=== PATIENT | male | born 1950 | race Caucasian/White ===

== ENCOUNTER 2016-07-23 14:45 | Inpatient (IN) | payer MEDICARE ==
[2016-07-23 16:05] VITALS: BP 152/92
[2016-07-23] MEDS ORDERED: Maalox 30 mL Cup PO PRN (16:13)
[2016-07-23] MEDS ORDERED: Potassium Chloride 20 mEq ER Tab PO ONE (22:00)
[2016-07-24 07:52] LABS: ANION GAP 9.2 (7.0-16.0); BUN - UREA NITROGEN 14 mg/dL (7-25); BUN/CREATININE RATIO 23.3; CALCIUM SERUM 8.6 mg/dL (8.6-10.3); CARBON DIOXIDE 29.3 mEq/L (21.0-31.0); CHLORIDE 104 mEq/L (98-107); CREATININE - SERUM 0.6 mg/dL (0.7-1.3); GLUCOSE 97 mg/dL (70-105); POTASSIUM SERUM 3.5 mEq/L (3.5-5.1); SODIUM SERUM 139 mEq/L (136-145)
[2016-07-24] MEDS: Multivitamin Tab PO SCH (08:23)
--- NOTE | 2016-07-24 09:40 | Diagnostic Imaging Report ---
CHEST X-RAY: AP view INDICATION: +PPD, rule out tuberculosis COMPARISON: None FINDINGS: Skin folds are seen along the bilateral hemithoraces. No evidence of a pneumothorax. Mild chronic changes are seen with no focal consolidation or pleural effusions. Tortuous aorta is noted with atherosclerosis. Heart size is normal. Osseous structures are intact. IMPRESSION: Mild chronic lung changes with no focal consolidation identified. No radiographic evidence of active tuberculosis. Tortuous aorta with atherosclerotic vascular disease.
[2016-07-24] MEDS: INSULIN ASPART SLIDING SCALE 100 UNITS/ML UNIT SUBQ SCH ×2 (16:52→21:11)
[2016-07-24] MEDS: Magnesium Chloride EC 64mg Tab PO SCH (16:56)
--- NOTE | 2016-07-25 02:38 | Psychosocial Evaluation ---
CHIEF COMPLAINT: "I am suicidal and I need a sharp knife." HISTORY OF PRESENT ILLNESS: The patient is a 66-year-old male who has history of bipolar disorder. The patient was transferred to the hospital from [facility] because of suicidal ideations. The patient said that he has been feeling depressed and he wants to kill himself by cutting his wrists or his jugular vein with a sharp knife. The patient said that he tried to cut his arm but he did not have a sharp knife and it did not work. He also has history of multiple suicidal attempts including cutting his left jugular vein 3 times and also overdosed on pills. He also said that he has been feeling that there is no reason for him to live and he should . The patient said that he has not been eating for several days and he has not been able to sleep. He also has been having lack of energy and lack of motivations and he feels ashamed to see others. PAST PSYCHIATRIC HISTORY: The patient has history of multiple psychiatric hospitalizations for treatment of bipolar disorder. PAST MEDICAL HISTORY: The patient has history of [id number] diabetes mellitus as well as bronchial asthma and hypertension. CHEMICAL DEPENDENCY HISTORY: The patient smokes 1 pack of cigarette per day. He denies any alcohol or any street drug use. SOCIAL HISTORY: The patient is since 1998. He has 3 grown-up children that he has no contact with them. The patient is homeless. He is unemployed and on social security disability. He denies any legal issues. He denies any history of sexual or physical abuse. ALLERGIES: ARTANE. MENTAL STATUS EXAM: The patient appears his stated age. Anxious. Sad affect. In a depressed mood. Thought processes are goal directed. The patient denied auditory or visual hallucinations or delusions. The patient admits to suicidal ideations with plan as mentioned above but denies any homicidal ideations. The patient is alert and oriented to time, place, person and situation. Intact immediate memory and he remembers events that happened prior to his admission. Intact recent memory and he remembers the events that happened 2 weeks ago. Intact remote memory and he remembered his date. Fair insight and he wants to get help and cooperative with his treatment. Poor judgment and he wants to cut himself with a sharp knife. He seems to be of average intelligence based on his verbal ability. Fair attention and concentration and he was able to spell "world" forward and backwards. ASSESSMENT: Primary diagnosis; bipolar disorder, depressed episode. TREATMENT PLAN: We will monitor the patient's behavior and condition closely. We will start the patient on Lexapro and Abilify and we will also monitor the dose. Also, we will start individual as well as milieu psychotherapy. ESTIMATED LENGTH OF STAY: 7-10 days. PATIENTS' STRENGTHS AND WEAKNESSES: The patient is cooperative with his treatment and compliant with taking medications and wants to get better. Weaknesses is his ineffective coping and questionable if he was compliant with taking his medications. AFTER DISCHARGE PLANS: The patient will be followed up as an outpatient. CRITERIA FOR DISCHARGE: The patient will not be psychotic or suicidal and to stabilize psychotropic medications and we will establish outpatient treatment plans. JOB# [id number]
[2016-07-25] MEDS: Aspirin 81mg Chewable Tab PO SCH (08:25)
[2016-07-25] MEDS: Multivitamin Tab PO SCH (08:25)
[2016-07-25] MEDS: INSULIN ASPART SLIDING SCALE 100 UNITS/ML UNIT SUBQ SCH ×4 (08:28→21:05)
[2016-07-25] MEDS: Magnesium Chloride EC 64mg Tab PO SCH ×2 (08:37→16:41)
--- NOTE | 2016-07-26 00:33 | Progress Notes ---
Covering for Dr. Isaacs. Case was discussed with staff of the patient, reviewed records. This is a 66-year-old male who was admitted on a hold for danger to self only 07/23/2016. He has a history of bipolar disorder, transferred from [facility] because of suicidal ideation. The patient said that he has been feeling depressed. He wants to kill himself by cutting his wrist or his jugular vein with a sharp knife. The patient said that he tried to cut his arm, but he did not have a sharp knife and it did not work. He is with a history of multiple suicide attempts, including cutting his left jugular vein 3 times and also overdosed on pills and also said that he has been feeling that there is no reason for him to live and he should . He said that he has not been eating for several days and has not been able to sleep. He has also been having lack of energy, lack of motivation. Has multiple prior psychiatric hospitalizations for bipolar disorder. Dr. Isaacs initiated medication on the patient, which is Lexapro 10 mg a day and Abilify 5 mg daily that was started yesterday. The patient continues to be unpredictable and impulsive. I will be increasing his Abilify dose to 10 mg a day and extend the hold because of his multiple suicide attempts and seriousness of his attempt. The patient is unpredictable and impulsive. I will be extending the hold because of the seriousness of his depression and multiple prior suicide attempts and so far, I will be increasing Abilify to 10 mg a day and so far, no side effects with the medication, no sedation, no nausea and we will continue to work with the patient in group therapy, milieu therapy, adjust the medication as needed. JOB# [id number]
[2016-07-26] MEDS: INSULIN ASPART SLIDING SCALE 100 UNITS/ML UNIT SUBQ SCH ×4 (06:30→20:45)
[2016-07-26] MEDS: Aspirin 81mg Chewable Tab PO SCH (08:52)
[2016-07-26] MEDS: Magnesium Chloride EC 64mg Tab PO SCH ×2 (08:52→16:51)
[2016-07-26] MEDS: Multivitamin Tab PO SCH (08:52)
--- NOTE | 2016-07-26 20:51 | Progress Notes ---
Case was discussed with staff of the patient, reviewed records. The patient continues to be depressed. Continues to be easily agitated. Continues to have poor insight. Continues to have thoughts of wanting to harm himself with multiple prior suicide attempts. Continues to be unpredictable, impulsive, and needing redirection. He is sleeping better and eating better. He is compliant with the medication with no side effects, no sedation, no nausea, and no extrapyramidal symptoms. He is on Abilify, I increased yesterday to 10 mg a day with no side effects, no sedation, no nausea, and no extrapyramidal symptoms. He was agitated yesterday. We will continue with the patient in group therapy, milieu therapy, and adjust medication as needed. JOB# [id number]
[2016-07-27] MEDS: INSULIN ASPART SLIDING SCALE 100 UNITS/ML UNIT SUBQ SCH ×4 (06:36→21:00)
[2016-07-27] MEDS: Aspirin 81mg Chewable Tab PO SCH (08:55)
[2016-07-27] MEDS: Magnesium Chloride EC 64mg Tab PO SCH ×2 (08:56→17:38)
[2016-07-27] MEDS: Multivitamin Tab PO SCH (08:56)
--- NOTE | 2016-07-27 16:06 | History & Physical ---
PATIENT IDENTIFICATION: A 66-year-old male. CHIEF COMPLAINT: "I'm depressed." HISTORY OF PRESENT ILLNESS: This is a 68-year-old homeless male presented to [facility] with chief complaint of feeling depressed. The patient was placed on hold and subsequently transferred here to [facility] for further care. PAST MEDICAL HISTORY: Remarkable for: 1. Diabetes. 2. Hypertension. 3. Chronic obstructive pulmonary disease. 4. DJD 5. Hyperlipidemia. MEDICATIONS: He was not taking any medicines, but on the chart, he was taking lisinopril and metformin. ALLERGIES: THE PATIENT IS ALLERGIC TO ARTANE. SOCIAL HISTORY: He is homeless. He has a history of smoking cigarettes. No history of any alcohol abuse. The patient denies any street drug use as per the patient's account. FAMILY MEDICAL HISTORY: Remarkable for diabetes, hypertension, and cancer. REVIEW OF SYSTEMS: The patient currently denies any headache, blurred vision, double vision, dysphagia, odynophagia, runny nose, stuffy nose, fever, chills, chest pain, shortness of breath, palpitations, dizziness, nausea, vomiting, diarrhea, dysuria, hematuria, hematochezia, or melena. No history of any seizure or syncopal episode. PHYSICAL EXAMINATION: GENERAL: The patient is alert, awake, oriented, lying in the bed without any acute distress. VITAL SIGNS: Temperature 98.6, pulse is 74, respiratory rate 18, and blood pressure 130/70. SKIN: Warm to touch. HEENT: Normocephalic and atraumatic. Extraocular muscles are intact. Tongue was pink and coated. Poor dentition noted. NECK: Supple. No JVD. No hepatojugular reflex. No lymphadenopathy, thyromegaly, or carotid bruit. HEART: Both heart sounds are regular. No S3, no S4, and no murmur. CHEST/LUNG: Equal in expansion, expiratory wheezing. ABDOMEN: Soft. No guarding, no rigidity. Liver and spleen palpable. No palpable mass. EXTREMITIES: No edema, no cyanosis, no clubbing ___ +2, no calf tenderness noted. NEUROLOGIC: Alert, awake, and oriented, lying in the bed without any acute distress. 2-12 cranial nerves are intact. PHYSICAL EXAMINATION VITAL SIGNS: Temperature 97.3, pulse 87, respiratory rate is 20, and blood pressure 150/86. SKIN: Warm to touch. HEENT: Normocephalic and atraumatic. Extraocular muscles are intact. Tongue was pink and coated. No oral lesion. No exudate. Absent upper and lower dentition noted. NECK: Supple. No JVD. No hepatojugular reflex. No lymphadenopathy, thyromegaly, or carotid bruit. HEART: Both heart sounds are regular. No S3, no S4. CHEST/LUNGS: Equal in expansion with expiratory wheezing. ABDOMEN: Soft. No guarding, no rigidity. Liver and spleen palpable. No palpable mass. EXTREMITIES: No edema, no cyanosis, and no calf tenderness noted. NEUROLOGY: Alert, awake, and oriented to time, place, person. 2-12 cranial nerves are intact. Power in upper and lower extremities 5+. Sensation to touch intact. Babinski in both toes are going down. No cerebral sign. AVAILABLE DIAGNOSTIC DATA: Performed has been reviewed. CLINICAL IMPRESSION: 1. Chronic obstructive pulmonary disease. 2. Diabetes. 3. Hypertension. 4. Hyperlipidemia. 5. Electrolyte imbalance. 6. Degenerative joint disease. 7. Psychotic disorder exacerbation. PLAN: 1. The patient has been admitted at this time to psychiatric floor. Psychiatric evaluation and management deferred to psychiatrist. 2. Correct the electrolytes. 3. More Glucoscan. 4. Metformin. 5. Lisinopril. 6. Lipid panel. 7. Fall precaution. 8. Aspirin as a CVA prophylaxis. 9. General nursing care. 10. Follow lab. 11. We will continue to follow this patient during the stay at the [facility]. JOB# [id number]
--- NOTE | 2016-07-28 00:47 | Progress Notes ---
Case discussed with staff of the patient, reviewed records. The patient continues to be depressed. The patient is with multiple prior serious suicide attempts, cutting his jugular vein, continues to have poor insight, continues to be unpredictable, impulsive, continues to need redirection ____to a supervision. He is compliant with the medication with no side effects, no sedation, no nausea, no extrapyramidal symptoms. I did increase his Abilify yesterday to 10 mg. I will be increasing his Lexapro to 50 mg a day, ____he will get 10 mg therapeutic dose and so far, no side effects, no sedation, no nausea, no extrapyramidal symptoms. We will continue to work with the patient in group therapy, milieu therapy, adjust the medications as needed. JOB# [id number]
[2016-07-28] MEDS: INSULIN ASPART SLIDING SCALE 100 UNITS/ML UNIT SUBQ SCH ×4 (06:33→21:07)
[2016-07-28] MEDS: Aspirin 81mg Chewable Tab PO SCH (09:09)
[2016-07-28] MEDS: Multivitamin Tab PO SCH (09:12)
[2016-07-28] MEDS: Magnesium Chloride EC 64mg Tab PO SCH ×2 (09:13→17:11)
--- NOTE | 2016-07-28 15:36 | Internal Medicine Prog Note ---
Internal Medicine Subjective - Subjective Service Date: 07/28/16 Patient seen and examined:: with staff Patient is:: awake Per staff patient is:: no adverse event Internal Medicine Objective - Results Result Diagrams: 07/24/16 07:04 Recent Labs: Laboratory Last Values Sodium 139 mEq/L (136-145) 07/24/16 07:04 Potassium 3.5 mEq/L (3.5-5.1) 07/24/16 07:04 Chloride 104 mEq/L (98-107) 07/24/16 07:04 Carbon Dioxide 29.3 mEq/L (21.0-31.0) 07/24/16 07:04 Anion Gap 9.2 (7.0-16.0) 07/24/16 07:04 BUN 14 mg/dL (7-25) 07/24/16 07:04 Creatinine 0.6 mg/dL (0.7-1.3) L 07/24/16 07:04 Est GFR ( Amer) > 60.0 ml/min 07/24/16 07:04 Est GFR (Non-Af Amer) > 60.0 ml/min 07/24/16 07:04 BUN/Creatinine Ratio 23.3 07/24/16 07:04 Glucose 97 mg/dL (70-105) 07/24/16 07:04 POC Glucose 113 MG/DL (70 - 105) H 07/28/16 06:30 Calcium 8.6 mg/dL (8.6-10.3) 07/24/16 07:04 Magnesium 1.6 mg/dL (1.9-2.7) L 07/24/16 06:58 - Physical Exam Vitals and I&O: Vital Signs Temp 97 F 07/28/16 06:26 Pulse 84 07/28/16 09:11 Resp 20 07/28/16 06:26 BP 149/90 07/28/16 09:11 Pulse Ox 100 07/28/16 06:26 Intake & Output 07/27/16 07/28/16 07/28/16 18:59 06:59 18:59 Intake Total 1000 240 Balance 1000 240 Intake: Oral 1000 240 Other: # Voids 3 3 # Bowel Movements 1 0 Active Medications: Current Medications Acetaminophen (Tylenol) 650 mg PO Q4HR PRN PRN Reason: Pain or Fever >101 Stop: 09/21/16 16:12 Al Hydrox/Mg Hydrox/Simethicone (Maalox) 30 ml PO Q4HR PRN PRN Reason: GI DISTRESS Stop: 09/21/16 16:12 Aripiprazole (Abilify) 10 mg PO DAILY COLT PRN Reason: Protocol Stop: 09/23/16 13:03 Last Admin: 07/28/16 09:09 Dose: 10 mg Aspirin (Aspirin Chewable) 81 mg PO DAILY [facility] Stop: 09/23/16 08:59 Last Admin: 07/28/16 09:09 Dose: 81 mg Escitalopram Oxalate (Lexapro) 15 mg PO DAILY COLT PRN Reason: Protocol Stop: 09/25/16 11:49 Last Admin: 07/28/16 09:09 Dose: 15 mg Insulin Aspart (Novolog Insulin Sliding Scale) 1 units SUBQ ACHS COLT PRN Reason: Protocol Stop: 09/22/16 16:29 Last Admin: 07/28/16 06:33 Dose: Not Given Lisinopril (Zestril) 20 mg PO DAILY [facility] Stop: 09/22/16 08:59 Last Admin: 07/28/16 09:11 Dose: 20 mg Lorazepam (Ativan) 0.5 mg PO Q4HR PRN; Protocol PRN Reason: Anxiety Stop: 08/22/16 16:12 Last Admin: 07/27/16 08:55 Dose: 0.5 mg Magnesium Chloride (Slow-Mag) 1 ect PO BID [facility] Stop: 09/22/16 16:59 Last Admin: 07/28/16 09:13 Dose: 1 ect Metformin HCl (Glucophage) 500 mg PO BID [facility] Stop: 09/21/16 16:59 Last Admin: 07/28/16 09:12 Dose: 500 mg Multivitamins/Vitamin C (Theragran) 1 tab PO DAILY [facility] Stop: 09/22/16 08:59 Last Admin: 07/28/16 09:12 Dose: 1 tab Zolpidem Tartrate (Ambien) 5 mg PO HS PRN PRN Reason: Insomnia Stop: 09/21/16 16:12 General: alert HEENT: NC/AT, PERRLA Neck: Supple Lungs: CTAB Cardiovascular: RRR, Normal S1, Normal S2, without murmur Abdomen: soft non-tender Neurological: no change Internal Medicine Assmt/Plan - Assessment Assessment: copd dm htn hyperlipidemia electrolyte imbalance djd psychotic disorder - Plan Plan: low fat diet continue current plan of care cpm
[2016-07-29] MEDS: INSULIN ASPART SLIDING SCALE 100 UNITS/ML UNIT SUBQ SCH ×4 (06:47→20:08)
[2016-07-29] MEDS: Magnesium Chloride EC 64mg Tab PO SCH ×2 (09:43→17:16)
[2016-07-29] MEDS: Multivitamin Tab PO SCH (09:45)
[2016-07-29] MEDS: Aspirin 81mg Chewable Tab PO SCH (09:45)
--- NOTE | 2016-07-29 16:15 | Internal Medicine Prog Note ---
Internal Medicine Subjective - Subjective Service Date: 07/29/16 Patient seen and examined:: with staff Patient is:: awake Per staff patient is:: no adverse event Internal Medicine Objective - Results Result Diagrams: 07/24/16 07:04 Recent Labs: Laboratory Last Values Sodium 139 mEq/L (136-145) 07/24/16 07:04 Potassium 3.5 mEq/L (3.5-5.1) 07/24/16 07:04 Chloride 104 mEq/L (98-107) 07/24/16 07:04 Carbon Dioxide 29.3 mEq/L (21.0-31.0) 07/24/16 07:04 Anion Gap 9.2 (7.0-16.0) 07/24/16 07:04 BUN 14 mg/dL (7-25) 07/24/16 07:04 Creatinine 0.6 mg/dL (0.7-1.3) L 07/24/16 07:04 Est GFR ( Amer) > 60.0 ml/min 07/24/16 07:04 Est GFR (Non-Af Amer) > 60.0 ml/min 07/24/16 07:04 BUN/Creatinine Ratio 23.3 07/24/16 07:04 Glucose 97 mg/dL (70-105) 07/24/16 07:04 POC Glucose 81 MG/DL (70 - 105) 07/29/16 11:52 Calcium 8.6 mg/dL (8.6-10.3) 07/24/16 07:04 Magnesium 1.6 mg/dL (1.9-2.7) L 07/24/16 06:58 - Physical Exam Vitals and I&O: Vital Signs Temp 97.6 F 07/29/16 14:00 Pulse 74 07/29/16 14:00 Resp 20 07/29/16 14:00 BP 141/78 07/29/16 14:00 Pulse Ox 95 07/29/16 14:00 Intake & Output 07/28/16 07/29/16 07/29/16 18:59 06:59 18:59 Intake Total 900 240 Balance 900 240 Intake: Oral 900 240 Other: # Voids 4 3 # Bowel Movements 1 0 Active Medications: Current Medications Acetaminophen (Tylenol) 650 mg PO Q4HR PRN PRN Reason: Pain or Fever >101 Stop: 09/21/16 16:12 Al Hydrox/Mg Hydrox/Simethicone (Maalox) 30 ml PO Q4HR PRN PRN Reason: GI DISTRESS Stop: 09/21/16 16:12 Aripiprazole (Abilify) 10 mg PO DAILY COLT PRN Reason: Protocol Stop: 09/23/16 13:03 Last Admin: 07/29/16 09:45 Dose: 10 mg Aspirin (Aspirin Chewable) 81 mg PO DAILY [facility] Stop: 09/23/16 08:59 Last Admin: 07/29/16 09:45 Dose: 81 mg Escitalopram Oxalate (Lexapro) 20 mg PO DAILY COLT PRN Reason: Protocol Stop: 09/25/16 11:49 Insulin Aspart (Novolog Insulin Sliding Scale) 1 units SUBQ ACHS COLT PRN Reason: Protocol Stop: 09/22/16 16:29 Last Admin: 07/29/16 12:01 Dose: Not Given Lisinopril (Zestril) 20 mg PO DAILY [facility] Stop: 09/22/16 08:59 Last Admin: 07/29/16 09:45 Dose: 20 mg Lorazepam (Ativan) 0.5 mg PO Q4HR PRN; Protocol PRN Reason: Anxiety Stop: 08/22/16 16:12 Last Admin: 07/27/16 08:55 Dose: 0.5 mg Magnesium Chloride (Slow-Mag) 1 ect PO BID [facility] Stop: 09/22/16 16:59 Last Admin: 07/29/16 09:43 Dose: 1 ect Metformin HCl (Glucophage) 500 mg PO BID [facility] Stop: 09/21/16 16:59 Last Admin: 07/29/16 09:44 Dose: 500 mg Multivitamins/Vitamin C (Theragran) 1 tab PO DAILY [facility] Stop: 09/22/16 08:59 Last Admin: 07/29/16 09:45 Dose: 1 tab Zolpidem Tartrate (Ambien) 5 mg PO HS PRN PRN Reason: Insomnia Stop: 09/21/16 16:12 General: alert HEENT: NC/AT, PERRLA Neck: Supple Lungs: CTAB Cardiovascular: RRR, Normal S1, Normal S2, without murmur Abdomen: soft non-tender Internal Medicine Assmt/Plan - Assessment Assessment: copd dm htn hyperlipidemia electrolyte imbalance djd psychotic disorder - Plan Plan: low fat diet continue current plan of care cpm
--- NOTE | 2016-07-29 21:00 | Progress Notes ---
SUBJECTIVE: Chart was reviewed and the patient interviewed. Also, discussed the patient's condition with the staff and reviewed records and labs. The patient still has mood swings and he is still easily agitated and in irritable and angry mood. The patient also still interacts minimally with peers and with others. The patient also is suspicious and is still depressed and withdrawn. Otherwise, the patient continues to comply with taking his medications with no side effects of medications. ASSESSMENT: The patient is still depressed and psychotic. TREATMENT PLAN: We will continue monitoring his behavior and his condition closely. Also, continue Lexapro in a dose of 10 mg every day and Abilify in a dose of 5 mg everyday and we will continue to follow up closely. [facility]# [id number]
--- NOTE | 2016-07-29 21:58 | Progress Notes ---
SUBJECTIVE: Chart was reviewed and the patient interviewed. Also discussed the patient's condition with the staff and reviewed records and labs. The patient is verbally aggressive and is insulting staff. Also, is still severely agitated and restless. The patient also still needs lots of redirections. He wants to be left alone and it seems that his anger is stemming from his severe level of depression. The patient also still needs some redirections. During interview, the patient is unhappy, angry, and restless. TREATMENT PLAN: We will continue to monitor his behavior and his condition closely. Also, we will increase Lexapro to 20 mg every day and will continue to monitor his behavior and his medications. [facility]# [id number]
[2016-07-30] MEDS: INSULIN ASPART SLIDING SCALE 100 UNITS/ML UNIT SUBQ SCH ×4 (06:46→21:00)
[2016-07-30] MEDS: Magnesium Chloride EC 64mg Tab PO SCH ×2 (08:22→16:38)
[2016-07-30] MEDS: Aspirin 81mg Chewable Tab PO SCH (08:23)
[2016-07-30] MEDS: Multivitamin Tab PO SCH (08:23)
--- NOTE | 2016-07-30 15:19 | Internal Medicine Prog Note ---
Internal Medicine Subjective - Subjective Service Date: 07/30/16 Patient seen and examined:: with staff Patient is:: awake Per staff patient is:: no adverse event Internal Medicine Objective - Results Result Diagrams: 07/24/16 07:04 Recent Labs: Laboratory Last Values Sodium 139 mEq/L (136-145) 07/24/16 07:04 Potassium 3.5 mEq/L (3.5-5.1) 07/24/16 07:04 Chloride 104 mEq/L (98-107) 07/24/16 07:04 Carbon Dioxide 29.3 mEq/L (21.0-31.0) 07/24/16 07:04 Anion Gap 9.2 (7.0-16.0) 07/24/16 07:04 BUN 14 mg/dL (7-25) 07/24/16 07:04 Creatinine 0.6 mg/dL (0.7-1.3) L 07/24/16 07:04 Est GFR ( Amer) > 60.0 ml/min 07/24/16 07:04 Est GFR (Non-Af Amer) > 60.0 ml/min 07/24/16 07:04 BUN/Creatinine Ratio 23.3 07/24/16 07:04 Glucose 97 mg/dL (70-105) 07/24/16 07:04 POC Glucose 71 MG/DL (70 - 105) 07/30/16 12:26 Calcium 8.6 mg/dL (8.6-10.3) 07/24/16 07:04 Magnesium 1.6 mg/dL (1.9-2.7) L 07/24/16 06:58 - Physical Exam Vitals and I&O: Vital Signs Temp 97.6 F 07/29/16 14:00 Pulse 76 07/30/16 08:22 Resp 21 07/29/16 20:00 BP 157/87 07/30/16 08:22 Pulse Ox 95 07/29/16 14:00 Intake & Output 07/29/16 07/30/16 07/30/16 18:59 06:59 18:59 Intake Total 900 Balance 900 Intake: Oral 900 Other: # Voids 3 # Bowel Movements 1 Active Medications: Current Medications Acetaminophen (Tylenol) 650 mg PO Q4HR PRN PRN Reason: Pain or Fever >101 Stop: 09/21/16 16:12 Al Hydrox/Mg Hydrox/Simethicone (Maalox) 30 ml PO Q4HR PRN PRN Reason: GI DISTRESS Stop: 09/21/16 16:12 Aripiprazole (Abilify) 10 mg PO DAILY COLT PRN Reason: Protocol Stop: 09/23/16 13:03 Last Admin: 07/30/16 08:23 Dose: 10 mg Aspirin (Aspirin Chewable) 81 mg PO DAILY [facility] Stop: 09/23/16 08:59 Last Admin: 07/30/16 08:23 Dose: 81 mg Escitalopram Oxalate (Lexapro) 20 mg PO DAILY COLT PRN Reason: Protocol Stop: 09/25/16 11:49 Last Admin: 07/30/16 08:22 Dose: 20 mg Insulin Aspart (Novolog Insulin Sliding Scale) 1 units SUBQ ACHS COLT PRN Reason: Protocol Stop: 09/22/16 16:29 Last Admin: 07/30/16 12:29 Dose: Not Given Lisinopril (Zestril) 20 mg PO DAILY [facility] Stop: 09/22/16 08:59 Last Admin: 07/30/16 08:22 Dose: 20 mg Lorazepam (Ativan) 0.5 mg PO Q4HR PRN; Protocol PRN Reason: Anxiety Stop: 08/22/16 16:12 Last Admin: 07/27/16 08:55 Dose: 0.5 mg Magnesium Chloride (Slow-Mag) 1 ect PO BID [facility] Stop: 09/22/16 16:59 Last Admin: 07/30/16 08:22 Dose: 1 ect Metformin HCl (Glucophage) 500 mg PO BID [facility] Stop: 09/21/16 16:59 Last Admin: 07/30/16 08:23 Dose: 500 mg Multivitamins/Vitamin C (Theragran) 1 tab PO DAILY [facility] Stop: 09/22/16 08:59 Last Admin: 07/30/16 08:23 Dose: 1 tab Zolpidem Tartrate (Ambien) 5 mg PO HS PRN PRN Reason: Insomnia Stop: 09/21/16 16:12 General: alert HEENT: NC/AT, PERRLA Neck: Supple Lungs: CTAB Cardiovascular: RRR, Normal S1, Normal S2, without murmur Abdomen: soft non-tender Extremities: clear Internal Medicine Assmt/Plan - Assessment Assessment: copd dm htn hyperlipidemia electrolyte imbalance djd psychotic disorder - Plan Plan: low fat diet continue current plan of care cpm
--- NOTE | 2016-07-31 02:14 | Progress Notes ---
SUBJECTIVE: Chart reviewed and the patient interviewed. Also discussed the patient's condition with the staff and reviewed records and labs. The patient is still isolative and is still withdrawn. His interaction with others is minimum. The patient also is restless and he still has periods of anger, but he wants to be left alone most of the time. The patient also at times gets easily agitated. He wants to be left alone most of the time. The patient also has mood swings. Otherwise, the patient denies any side effects of medications. ASSESSMENT: The patient is still depressed and can be dangerous to herself. TREATMENT PLAN: We will continue monitoring his behavior and his condition closely. Also, encourage the patient to get out of his isolation to interact more with others. Also continue to adjust psychotropic medications. JOB# [id number]
[2016-07-31] MEDS: INSULIN ASPART SLIDING SCALE 100 UNITS/ML UNIT SUBQ SCH ×4 (06:55→21:04)
[2016-07-31] MEDS: Aspirin 81mg Chewable Tab PO SCH (09:52)
[2016-07-31] MEDS: Multivitamin Tab PO SCH (09:52)
[2016-07-31] MEDS: Magnesium Chloride EC 64mg Tab PO SCH ×2 (09:56→17:00)
--- NOTE | 2016-07-31 14:40 | Internal Medicine Prog Note ---
Internal Medicine Subjective - Subjective Service Date: 07/31/16 Patient seen and examined:: with staff Patient is:: awake Per staff patient is:: no adverse event Internal Medicine Objective - Results Result Diagrams: 07/24/16 07:04 Recent Labs: Laboratory Last Values Sodium 139 mEq/L (136-145) 07/24/16 07:04 Potassium 3.5 mEq/L (3.5-5.1) 07/24/16 07:04 Chloride 104 mEq/L (98-107) 07/24/16 07:04 Carbon Dioxide 29.3 mEq/L (21.0-31.0) 07/24/16 07:04 Anion Gap 9.2 (7.0-16.0) 07/24/16 07:04 BUN 14 mg/dL (7-25) 07/24/16 07:04 Creatinine 0.6 mg/dL (0.7-1.3) L 07/24/16 07:04 Est GFR ( Amer) > 60.0 ml/min 07/24/16 07:04 Est GFR (Non-Af Amer) > 60.0 ml/min 07/24/16 07:04 BUN/Creatinine Ratio 23.3 07/24/16 07:04 Glucose 97 mg/dL (70-105) 07/24/16 07:04 POC Glucose 76 MG/DL (70 - 105) 07/31/16 11:37 Calcium 8.6 mg/dL (8.6-10.3) 07/24/16 07:04 Magnesium 1.6 mg/dL (1.9-2.7) L 07/24/16 06:58 - Physical Exam Vitals and I&O: Vital Signs Temp 97.4 F 07/31/16 07:19 Pulse 69 07/31/16 09:52 Resp 18 07/31/16 07:19 BP 150/96 07/31/16 09:52 Pulse Ox 98 07/31/16 07:19 Intake & Output 07/30/16 07/31/16 07/31/16 18:59 06:59 18:59 Intake Total 1000 Balance 1000 Intake: Oral 1000 Other: # Voids 2 2 # Bowel Movements 1 Stool Characteristics Soft Active Medications: Current Medications Acetaminophen (Tylenol) 650 mg PO Q4HR PRN PRN Reason: Pain or Fever >101 Stop: 09/21/16 16:12 Al Hydrox/Mg Hydrox/Simethicone (Maalox) 30 ml PO Q4HR PRN PRN Reason: GI DISTRESS Stop: 09/21/16 16:12 Aripiprazole (Abilify) 10 mg PO DAILY COLT PRN Reason: Protocol Stop: 09/23/16 13:03 Last Admin: 07/31/16 09:52 Dose: 10 mg Aspirin (Aspirin Chewable) 81 mg PO DAILY [facility] Stop: 09/23/16 08:59 Last Admin: 07/31/16 09:52 Dose: 81 mg Escitalopram Oxalate (Lexapro) 20 mg PO DAILY COLT PRN Reason: Protocol Stop: 09/25/16 11:49 Last Admin: 07/31/16 09:51 Dose: 20 mg Insulin Aspart (Novolog Insulin Sliding Scale) 1 units SUBQ ACHS COLT PRN Reason: Protocol Stop: 09/22/16 16:29 Last Admin: 07/31/16 13:29 Dose: Not Given Lisinopril (Zestril) 20 mg PO DAILY [facility] Stop: 09/22/16 08:59 Last Admin: 07/31/16 09:52 Dose: 20 mg Magnesium Chloride (Slow-Mag) 1 ect PO BID [facility] Stop: 09/22/16 16:59 Last Admin: 07/31/16 09:56 Dose: Not Given Metformin HCl (Glucophage) 500 mg PO BID [facility] Stop: 09/21/16 16:59 Last Admin: 07/31/16 09:51 Dose: 500 mg Multivitamins/Vitamin C (Theragran) 1 tab PO DAILY [facility] Stop: 09/22/16 08:59 Last Admin: 07/31/16 09:52 Dose: 1 tab General: alert HEENT: NC/AT, PERRLA Neck: Supple Lungs: CTAB Cardiovascular: RRR, Normal S1, Normal S2, without murmur Abdomen: soft non-tender Internal Medicine Assmt/Plan - Assessment Assessment: copd dm htn hyperlipidemia electrolyte imbalance djd psychotic disorder - Plan Plan: low fat diet continue current plan of care cpm
--- NOTE | 2016-07-31 19:08 | Progress Notes ---
Chart reviewed and patient interviewed. Also discussed the patient's condition with the staff and reviewed records and labs. The patient still seems to be more depressed and still isolative and withdrawn. The patient also is still interacting minimally with others. The patient also is still wants to be left alone and have difficulty carrying on conversation. Still verbally aggressive with the staff. Otherwise, the patient is compliant with taking medications with no side effects of Lexapro. ASSESSMENT: The patient is still depressed. TREATMENT PLAN: We will continue monitoring his behavior and his condition closely. Also, complex case manager continued to work on his placement issue and discharge plan. At the same time, we will continue adjusting psychotropic medications. JOB# [id number]
[2016-08-01] MEDS: INSULIN ASPART SLIDING SCALE 100 UNITS/ML UNIT SUBQ SCH ×4 (06:45→21:51)
[2016-08-01] MEDS: Aspirin 81mg Chewable Tab PO SCH (09:18)
[2016-08-01] MEDS: Multivitamin Tab PO SCH (09:18)
[2016-08-01] MEDS: Magnesium Chloride EC 64mg Tab PO SCH ×2 (09:22→17:08)
--- NOTE | 2016-08-01 12:04 | Internal Medicine Prog Note ---
Internal Medicine Subjective - Subjective Service Date: 08/01/16 Patient seen and examined:: with staff Patient is:: awake Per staff patient is:: no adverse event Internal Medicine Objective - Results Result Diagrams: 07/24/16 07:04 Recent Labs: Laboratory Last Values Sodium 139 mEq/L (136-145) 07/24/16 07:04 Potassium 3.5 mEq/L (3.5-5.1) 07/24/16 07:04 Chloride 104 mEq/L (98-107) 07/24/16 07:04 Carbon Dioxide 29.3 mEq/L (21.0-31.0) 07/24/16 07:04 Anion Gap 9.2 (7.0-16.0) 07/24/16 07:04 BUN 14 mg/dL (7-25) 07/24/16 07:04 Creatinine 0.6 mg/dL (0.7-1.3) L 07/24/16 07:04 Est GFR ( Amer) > 60.0 ml/min 07/24/16 07:04 Est GFR (Non-Af Amer) > 60.0 ml/min 07/24/16 07:04 BUN/Creatinine Ratio 23.3 07/24/16 07:04 Glucose 97 mg/dL (70-105) 07/24/16 07:04 POC Glucose 95 MG/DL (70 - 105) 08/01/16 06:42 Calcium 8.6 mg/dL (8.6-10.3) 07/24/16 07:04 Magnesium 1.6 mg/dL (1.9-2.7) L 07/24/16 06:58 - Physical Exam Vitals and I&O: Vital Signs Temp 98.2 F 07/31/16 20:19 Pulse 89 08/01/16 09:16 Resp 20 07/31/16 20:19 BP 150/80 08/01/16 09:16 Pulse Ox 98 07/31/16 20:19 Intake & Output 07/31/16 08/01/16 08/01/16 18:59 06:59 18:59 Intake Total 1000 240 Balance 1000 240 Intake: Oral 1000 240 Other: # Voids 3 1 # Bowel Movements 1 Stool Characteristics Soft Active Medications: Current Medications Acetaminophen (Tylenol) 650 mg PO Q4HR PRN PRN Reason: Pain or Fever >101 Stop: 09/21/16 16:12 Al Hydrox/Mg Hydrox/Simethicone (Maalox) 30 ml PO Q4HR PRN PRN Reason: GI DISTRESS Stop: 09/21/16 16:12 Aripiprazole (Abilify) 10 mg PO DAILY COLT PRN Reason: Protocol Stop: 09/23/16 13:03 Last Admin: 08/01/16 09:18 Dose: 10 mg Aspirin (Aspirin Chewable) 81 mg PO DAILY [facility] Stop: 09/23/16 08:59 Last Admin: 08/01/16 09:18 Dose: 81 mg Escitalopram Oxalate (Lexapro) 20 mg PO DAILY COLT PRN Reason: Protocol Stop: 09/25/16 11:49 Last Admin: 08/01/16 09:17 Dose: 20 mg Insulin Aspart (Novolog Insulin Sliding Scale) 1 units SUBQ ACHS COLT PRN Reason: Protocol Stop: 09/22/16 16:29 Last Admin: 08/01/16 06:45 Dose: Not Given Lisinopril (Zestril) 20 mg PO DAILY [facility] Stop: 09/22/16 08:59 Last Admin: 08/01/16 09:16 Dose: 20 mg Magnesium Chloride (Slow-Mag) 1 ect PO BID [facility] Stop: 09/22/16 16:59 Last Admin: 08/01/16 09:22 Dose: 1 ect Metformin HCl (Glucophage) 500 mg PO BID [facility] Stop: 09/21/16 16:59 Last Admin: 08/01/16 09:17 Dose: 500 mg Multivitamins/Vitamin C (Theragran) 1 tab PO DAILY [facility] Stop: 09/22/16 08:59 Last Admin: 08/01/16 09:18 Dose: 1 tab General: alert HEENT: NC/AT, PERRLA Neck: Supple Lungs: CTAB Cardiovascular: RRR, Normal S1, Normal S2, without murmur Abdomen: soft non-tender Internal Medicine Assmt/Plan - Assessment Assessment: copd dm htn hyperlipidemia electrolyte imbalance djd psychotic disorder - Plan Plan: low fat diet continue current plan of care cpm
[2016-08-02] MEDS: INSULIN ASPART SLIDING SCALE 100 UNITS/ML UNIT SUBQ SCH ×4 (06:43→21:00)
[2016-08-02] MEDS: Magnesium Chloride EC 64mg Tab PO SCH ×3 (08:19→16:57)
[2016-08-02] MEDS: Multivitamin Tab PO SCH (08:19)
[2016-08-02] MEDS: Aspirin 81mg Chewable Tab PO SCH (08:19)
--- NOTE | 2016-08-02 08:59 | Progress Notes ---
Dr. Damian covering for Dr. Isaacs. SUBJECTIVE: The patient was seen and evaluated. The patient's chart reviewed. Overnight, staff members are reporting that he is restless, easily labile, easily frustrated, and easily agitated, keeping to himself to his room. Today on [id number] evaluation, the patient is observed to be easily derailed, needs redirection for his conversations, easily agitated. MENTAL STATUS EXAMINATION: Easily irritable, agitated, needing a lot of redirections to continue with the coherent conversation and poor insight, poor judgment and poor impulse control. ASSESSMENT AND PLAN: The patient is a 66-year-old male with a history of bipolar disorder, depressive episode, who was initially brought in here from [facility] because of suicidal ideation. The patient said he was feeling depressed and he wanted to kill himself by cutting his wrists. It appears that the patient is still in melancholic and depressed state. We will continue with the current medication that recently was adjusted. We will continue with Lexapro 20 mg and Abilify 10 mg to target the patient's depressed and melancholic state. JOB# [id number] MTDJuwan
[2016-08-03] MEDS: INSULIN ASPART SLIDING SCALE 100 UNITS/ML UNIT SUBQ SCH ×3 (06:42→20:45)
[2016-08-03] MEDS: Multivitamin Tab PO SCH (09:50)
[2016-08-03] MEDS: Aspirin 81mg Chewable Tab PO SCH (09:50)
[2016-08-03] MEDS: Magnesium Chloride EC 64mg Tab PO SCH ×2 (09:53→16:36)
--- NOTE | 2016-08-03 20:12 | Progress Notes ---
SUBJECTIVE: The patient seen, chart reviewed, discussed with staff. The patient transferred from [facility]; suicidal intent and plan to hurt himself with a knife. History and suicide attempts in the past. The patient states that he wants to leave the hospital, states he wants to stay in a correction. However, he remains withdrawn, depressed, continued concerns about his safety do persist and there are also concerns about his ability to care for his basic needs. Noted to be restless, easily labile, easily frustrated, easily agitated. Isolation is a concern. He is still needing a lot of redirection. Continued concerns about suicidal ideations persist as well. Medications were reviewed. Labs reviewed. No overt side effects. The patient notes he is sleeping well, eating with prompting. ASSESSMENT AND PLAN: The patient still needing a lot of redirection. Still concerns about safety due to symptoms of irritability and depression. We will continue to monitor and titrate medications as tolerated. [facility]# [id number]
[2016-08-04] MEDS: INSULIN ASPART SLIDING SCALE 100 UNITS/ML UNIT SUBQ SCH ×4 (06:51→17:10)
--- NOTE | 2016-08-04 11:14 | Progress Notes ---
SUBJECTIVE: The patient was seen and evaluated. The patient's chart was reviewed, discussed with the staff members. The staff members reported that the patient's is noted to be anxious. Today on [id number] evaluation, the patient is pacing anxious, needed some redirection to hold a conversation and reported depression is getting better. MENTAL STATUS EXAMINATION: Melancholic and depressed. Poor insight and poor judgment. Poor impulse control. ASSESSMENT AND PLAN: The patient is a 66-year-old male with a history of major depressive disorder, currently antidepressants being augmented with Abilify without major side effects. He is tolerating. Due to the patient's melancholic and anxiety, he is unable to formulate a safe plan outside of a structured environment. [facility]# [id number] ROSA
[2016-08-04] MEDS: Aspirin 81mg Chewable Tab PO SCH (16:47)
[2016-08-04] MEDS: Multivitamin Tab PO SCH (16:48)
[2016-08-04] MEDS: Magnesium Chloride EC 64mg Tab PO SCH ×2 (16:48→17:11)
--- NOTE | 2016-08-04 23:50 | Progress Notes ---
Covering for Dr. Isaacs. Case was discussed with staff of the patient, reviewed records. This is a well-known case to me and I have seen him before covering for Dr. Isaacs. The patient continues to be very irritable, agitated, and continues to have poor insight. Unpredictable and impulsive. He was trying to leave the hospital. He continues to be depressed. There is a concern about his safety and his ability to care for his basic needs. His medication continues to be adjusted, and so far, he is compliant with the medication with no side effects. He is currently on Lexapro that was increased on 06/29/2016 to 20 mg a day and he is on Abilify that was increased by me on the 06/25/2016 to 10 mg a day. I will be increasing the dose to 50 mg a day and so far, no side effects, no sedation, no nausea, and no extrapyramidal symptoms, and hopefully that would help decrease his agitation, irritability, and depression. We will continue to work with the patient in group therapy, milieu therapy, and adjust the medication as needed. JOB# [id number]
[2016-08-05] MEDS: INSULIN ASPART SLIDING SCALE 100 UNITS/ML UNIT SUBQ SCH ×4 (06:39→20:57)
[2016-08-05] MEDS: Multivitamin Tab PO SCH (10:40)
[2016-08-05] MEDS: Aspirin 81mg Chewable Tab PO SCH (10:41)
[2016-08-05] MEDS: Magnesium Chloride EC 64mg Tab PO SCH ×2 (11:11→17:51)
--- NOTE | 2016-08-05 20:39 | Psychosocial Evaluation ---
Case was discussed with staff of the patient, reviewed records. The patient continues to be easily agitated, irritable, continues to have poor insight, needing redirection. Continues to minimize events led to his admission with his multiple prior suicide attempts. He is sleeping well and eating well. He is compliant with the medication with no side effects, but he tends to get angered very easily. I did increase his Abilify yesterday and he is surely to make judgment on the effect of the increase and no side effects, no sedation, no nausea, and no extrapyramidal symptoms. We will continue to work with the patient in group therapy, milieu therapy, and adjust the medication as needed. JOB# [id number]
[2016-08-06] MEDS: INSULIN ASPART SLIDING SCALE 100 UNITS/ML UNIT SUBQ SCH ×4 (06:46→22:00)
[2016-08-06] MEDS: Magnesium Chloride EC 64mg Tab PO SCH ×2 (09:48→17:35)
[2016-08-06] MEDS: Multivitamin Tab PO SCH (09:49)
[2016-08-06] MEDS: Aspirin 81mg Chewable Tab PO SCH (09:49)
--- NOTE | 2016-08-07 04:04 | Progress Notes ---
Case was discussed with staff of the patient, reviewed records. The patient reported feeling better. He is sleeping well and eating well. He denies any intent to ____ anybody. He denies any auditory or visual hallucination. He reported to be agreed that yes he did try to harm himself in the past, but he is not feeling that way now. He seems to be in better mood. He is much calmer. He is sleeping well and eating well, and he assures me that he does not want to harm himself; however, the only issue now we have is to make sure he goes to his facility where he will be observed. So, he would not harm himself, though he is no longer acting in anyway dangerous while he is here in [place] ___ looking into his case, so when get placement for this, we will be discharging him. The staff is in agreement with that. They feel he is ready to go to a lesser level of care, so we are working on placement. We will continue to work with the patient in group therapy, milieu therapy, and adjust medication. JOB# [id number]
[2016-08-07] MEDS: INSULIN ASPART SLIDING SCALE 100 UNITS/ML UNIT SUBQ SCH ×4 (07:04→21:04)
[2016-08-07] MEDS: Multivitamin Tab PO SCH (10:10)
[2016-08-07] MEDS: Aspirin 81mg Chewable Tab PO SCH (10:10)
[2016-08-07] MEDS: Magnesium Chloride EC 64mg Tab PO SCH ×2 (10:12→17:05)
--- NOTE | 2016-08-08 01:10 | Progress Notes ---
Case was discussed with staff of the patient, reviewed records. The patient continues to be unpredictable and impulsive. He has been throwing temper tantrums. The staff report that he is refusing all placements and he wants to go out in ring. They believe he is still gravely disabled and danger to himself. He continues to be unpredictable, impulsive, and easily agitated, and I would recommend for the covering psychiatrist to extend the hold because this anatoliy has many prior suicide attempts, serious suicide attempts with him trying to cut his throat, overdose, many episodes, and he tends to minimize his symptoms; however, he is uncooperative with the discharge plan. The staff believes he may be wanting to go and drink and drinking make him even a higher risk, and so far, no side effects with the medication, no sedation, no nausea, and no extrapyramidal symptoms. I will continue to work with the patient in group therapy, milieu therapy, and adjust the medication as needed. JOB# [id number]
[2016-08-08] MEDS: INSULIN ASPART SLIDING SCALE 100 UNITS/ML UNIT SUBQ SCH ×4 (06:34→21:05)
[2016-08-08] MEDS: Magnesium Chloride EC 64mg Tab PO SCH ×2 (09:01→18:33)
[2016-08-08] MEDS: Multivitamin Tab PO SCH (09:02)
[2016-08-08] MEDS: Aspirin 81mg Chewable Tab PO SCH (09:02)
--- NOTE | 2016-08-08 19:20 | Progress Notes ---
SUBJECTIVE: The patient seen, chart reviewed, discussed with staff. The patient is currently in the hospital, bipolar disorder, suicidal wanting to hurt himself with a knife. On [id number], the patient remains depressed, isolative, withdrawn, happy with the care he is receiving, unclear where he is going to go. __States he wants to go__ to a halfway, still with some symptoms of sadness, depression, isolation, still attesting to some mood lability. Continued concerns about his safety do exist and it is unclear if he is able to care for his basic needs at this time. Eating with prompting. Sleeping fairly well. ASSESSMENT: The patient remains impulsive, unpredictable, still with some tantrums, refusing placement at this time. Dr. Aragon is concerned because of his history of suicide attempts in the past. PLAN: We will continue to monitor. We will continue to 30-day hold. There____ continued concerns about his safety in his ability to care for his basic needs. JOB# [id number] ROSA
[2016-08-09] MEDS: INSULIN ASPART SLIDING SCALE 100 UNITS/ML UNIT SUBQ SCH ×4 (06:31→20:12)
[2016-08-09] MEDS: Aspirin 81mg Chewable Tab PO SCH (09:07)
[2016-08-09] MEDS: Multivitamin Tab PO SCH (09:09)
[2016-08-09] MEDS: Magnesium Chloride EC 64mg Tab PO SCH ×2 (09:11→16:38)
--- NOTE | 2016-08-09 21:19 | Progress Notes ---
SUBJECTIVE: The patient was seen, chart reviewed, and discussed with staff. The events that led the patient to the hospital were reviewed. On [id number], the patient is still withdrawn, isolative, and concerns for his ability to care for his basic needs remain present. He does, however, that he can go to the skilled nursing and he has stayed in shelters before. However, for safety, I did place him on a 30-day hold, still with some symptoms of sadness, isolation, still impulsive, unpredictable, requiring redirection, eating fairly well, and sleeping fairly well. Medications were reviewed. No overt side effects. ASSESSMENT: The patient remains impulsive, still with some outbursts, concerns for placement as the patient has been refusing placement that was offered to him. PLAN: Continue to monitor. Continue 30-day hold. The patient is to follow up with Dr. Isaacs in the morning. JOB# [id number]
[2016-08-10] MEDS: INSULIN ASPART SLIDING SCALE 100 UNITS/ML UNIT SUBQ SCH ×4 (06:34→21:39)
[2016-08-10] MEDS: Magnesium Chloride EC 64mg Tab PO SCH ×2 (08:08→16:45)
[2016-08-10] MEDS: Aspirin 81mg Chewable Tab PO SCH (08:09)
[2016-08-10] MEDS: Multivitamin Tab PO SCH (08:09)
--- NOTE | 2016-08-11 01:07 | Progress Notes ---
SUBJECTIVE: Chart was reviewed and the patient interviewed. Also discussed the patient's condition with the staff and reviewed records and labs. The patient is still anxious, and he has still periods of irritability and depression. The patient also is interacting minimally with peers and with others. The patient also is denying any thoughts of suicide, but he still feels hopeless and helpless. He also wants to be left alone most of the time. Otherwise, the patient is compliant with taking his medications with no side effects of medications. Placement of the patient is still pending and [facility] still did not give answer to his placement and waiting to hear from them. We will continue the same treatment and we will continue to follow up. [facility]# [id number]
[2016-08-11] MEDS: INSULIN ASPART SLIDING SCALE 100 UNITS/ML UNIT SUBQ SCH ×3 (07:06→21:46)
[2016-08-11] MEDS: Aspirin 81mg Chewable Tab PO SCH (09:03)
[2016-08-11] MEDS: Magnesium Chloride EC 64mg Tab PO SCH ×2 (09:05→17:18)
[2016-08-11] MEDS: Multivitamin Tab PO SCH (09:05)
[2016-08-12] MEDS: INSULIN ASPART SLIDING SCALE 100 UNITS/ML UNIT SUBQ SCH ×4 (06:57→20:52)
--- NOTE | 2016-08-12 08:25 | Progress Notes ---
SUBJECTIVE: Chart reviewed and the patient interviewed. Also discussed the patient's condition with the staff and reviewed records and labs. The patient is still anxious and is still eager about places where he can go to live. The patient also is still waiting for being interviewed by places to make him live. At the same time, he is still feeling hopeless and helpless. Also, he is still withdrawn and interacting minimally with others. He also is still restless and is still in a depressed mood. ASSESSMENT: The patient is still depressed and still needs placement. TREATMENT PLAN: We will continue monitoring his behavior and his condition closely. Also, we will continue to follow up closely with his anxiety and continue to monitor his medications. Also, we will work with case folder in order to placement issue. JOB# [id number]
[2016-08-12] MEDS: Aspirin 81mg Chewable Tab PO SCH (09:09)
[2016-08-12] MEDS: Magnesium Chloride EC 64mg Tab PO SCH ×2 (09:10→17:18)
[2016-08-12] MEDS: Multivitamin Tab PO SCH (09:11)
--- NOTE | 2016-08-12 23:54 | Progress Notes ---
SUBJECTIVE: Chart reviewed and the patient interviewed. Also, discussed the patient's condition with the staff and reviewed records and labs. The patient is still anxious and depressed and has multiple questions about his discharge. The patient needs lots of reassurance. He is still suspicious at times and slightly paranoid, but has been so far cooperative with his treatment and compliant with taking his medications. The patient denies any side effects of Lexapro or Abilify. ASSESSMENT: The patient is still depressed. TREATMENT PLAN: We will continue Lexapro and Abilify same dose. Also, we are working with case technician in regard to placement issue. Hopefully, the patient will be accepted by [facility] or other facility to prepare for his discharge. At the same time, we will continue to monitor behavior and we will continue to follow up. Also, we will continue to provide supportive therapy for the patient. JOB# [id number]
[2016-08-13] MEDS: INSULIN ASPART SLIDING SCALE 100 UNITS/ML UNIT SUBQ SCH ×4 (06:32→21:31)
[2016-08-13] MEDS: Multivitamin Tab PO SCH (09:30)
[2016-08-13] MEDS: Aspirin 81mg Chewable Tab PO SCH (09:31)
[2016-08-13] MEDS: Magnesium Chloride EC 64mg Tab PO SCH ×2 (09:32→17:05)
--- NOTE | 2016-08-14 06:08 | Progress Notes ---
SUBJECTIVE: Chart reviewed and the patient interviewed. Also discussed the patient's condition with the staff and reviewed records and labs. The patient is still severely upset and angry for being in the hospital and he is still unable to provide any safe plan for self-care. The patient also saying that he has money in the bank, but unable to provide exact information about the amount or any more detail about it. Also, social contact worker could not confirm any of that. During interview, he became paranoid and suspicious and he at times became agitated. Otherwise, the patient is compliant with taking his medications with no side effects of medications. ASSESSMENT: The patient is still paranoid. TREATMENT PLAN: We will continue monitoring his behavior and his condition closely. Also, continue working on placement issue and discharge plans. JOB# [id number]
[2016-08-14] MEDS: INSULIN ASPART SLIDING SCALE 100 UNITS/ML UNIT SUBQ SCH ×4 (06:32→20:52)
[2016-08-14] MEDS: Aspirin 81mg Chewable Tab PO SCH (08:16)
[2016-08-14] MEDS: Magnesium Chloride EC 64mg Tab PO SCH ×2 (08:16→17:35)
[2016-08-14] MEDS: Multivitamin Tab PO SCH (08:18)
[2016-08-15] MEDS: INSULIN ASPART SLIDING SCALE 100 UNITS/ML UNIT SUBQ SCH ×4 (06:43→20:42)
--- NOTE | 2016-08-15 07:54 | Progress Notes ---
SUBJECTIVE: Chart was reviewed and the patient interviewed. Also discussed the patient's condition with the staff and reviewed records and labs. The patient is still anxious about his discharge. The patient also is still slightly suspicious and paranoid and he is still unable to provide safe plan for self-care. Also, still has mood swings and has periods of anxious and irritability. The patient also has other questions about placement. I called the client experience administrator of [facility] [place], who interviewed the patient to discuss for the placement issue and chance of the patient and she will not come on Wednesday to interview him again because she felt that the patient is not sincere about staying in the facility. ASSESSMENT: The patient is still depressed and unable to provide safe plan for self-care. TREATMENT PLAN: We will continue to monitor his behavior and his condition closely. Also, we will continue to work on placement issue and discharge plans. JOB# [id number]
[2016-08-15] MEDS: Multivitamin Tab PO SCH (09:12)
[2016-08-15] MEDS: Magnesium Chloride EC 64mg Tab PO SCH ×2 (09:12→17:37)
[2016-08-15] MEDS: Aspirin 81mg Chewable Tab PO SCH (09:12)
[2016-08-16] MEDS: INSULIN ASPART SLIDING SCALE 100 UNITS/ML UNIT SUBQ SCH ×4 (06:39→20:31)
[2016-08-16] MEDS: Multivitamin Tab PO SCH (08:32)
[2016-08-16] MEDS: Aspirin 81mg Chewable Tab PO SCH (08:33)
[2016-08-16] MEDS: Magnesium Chloride EC 64mg Tab PO SCH ×2 (08:36→17:41)
--- NOTE | 2016-08-16 09:35 | Progress Notes ---
SUBJECTIVE: Chart reviewed and the patient interviewed. Also discussed the patient's condition with the staff and reviewed records and labs. The patient is still anxious and is still severely depressed because no place accepted him yet. He also still has periods of severe anxiety and agitated. The patient also at times is demanding. He is still feeling hopeless and helpless and he still has difficulty with mood. Also, wants to be left alone and most of the time wants to be left alone. On the other hand, the patient continues to comply with taking his medications with no side effects of medications. ASSESSMENT: The patient is still depressed and anxious. TREATMENT PLAN: We will continue to monitor his behavior and his condition closely. Also waiting for [facility] to evaluate the patient on Wednesday. Hopefully, they will accept him for placement there. There is no other place accepting the patient and the patient cannot live on his own at this time. At the same time, continue adjusting psychotropic medications and we will continue to follow up. [facility]# [id number]
--- NOTE | 2016-08-16 17:49 | Internal Medicine Prog Note ---
Internal Medicine Subjective - Subjective Service Date: 08/16/16 Patient seen and examined:: with staff Patient is:: awake Per staff patient is:: no adverse event Internal Medicine Objective - Results Result Diagrams: 07/24/16 07:04 Recent Labs: Laboratory Last Values Sodium 139 mEq/L (136-145) 07/24/16 07:04 Potassium 3.5 mEq/L (3.5-5.1) 07/24/16 07:04 Chloride 104 mEq/L (98-107) 07/24/16 07:04 Carbon Dioxide 29.3 mEq/L (21.0-31.0) 07/24/16 07:04 Anion Gap 9.2 (7.0-16.0) 07/24/16 07:04 BUN 14 mg/dL (7-25) 07/24/16 07:04 Creatinine 0.6 mg/dL (0.7-1.3) L 07/24/16 07:04 Est GFR ( Amer) > 60.0 ml/min 07/24/16 07:04 Est GFR (Non-Af Amer) > 60.0 ml/min 07/24/16 07:04 BUN/Creatinine Ratio 23.3 07/24/16 07:04 Glucose 97 mg/dL (70-105) 07/24/16 07:04 POC Glucose 96 MG/DL (70 - 105) 08/16/16 16:38 Calcium 8.6 mg/dL (8.6-10.3) 07/24/16 07:04 Magnesium 1.6 mg/dL (1.9-2.7) L 07/24/16 06:58 - Physical Exam Vitals and I&O: Vital Signs Temp 97.6 F 08/16/16 06:25 Pulse 92 08/16/16 15:18 Resp 20 08/16/16 15:18 BP 140/86 08/16/16 15:18 Pulse Ox 97 08/16/16 15:18 Intake & Output 08/15/16 08/16/16 08/16/16 18:59 06:59 18:59 Intake Total 1440 Balance 1440 Intake: Oral 1440 Other: # Voids 4 # Bowel Movements 0 Active Medications: Current Medications Acetaminophen (Tylenol) 650 mg PO Q4HR PRN PRN Reason: Pain or Fever >101 Stop: 09/21/16 16:12 Last Admin: 08/03/16 21:53 Dose: 650 mg Al Hydrox/Mg Hydrox/Simethicone (Maalox) 30 ml PO Q4HR PRN PRN Reason: GI DISTRESS Stop: 09/21/16 16:12 Aripiprazole (Abilify) 20 mg PO DAILY COLT PRN Reason: Protocol Stop: 10/06/16 12:12 Last Admin: 08/16/16 08:31 Dose: 20 mg Aspirin (Aspirin Chewable) 81 mg PO DAILY COLT Stop: 09/23/16 08:59 Last Admin: 08/16/16 08:33 Dose: 81 mg Escitalopram Oxalate (Lexapro) 20 mg PO DAILY COLT PRN Reason: Protocol Stop: 09/25/16 11:49 Last Admin: 08/16/16 08:33 Dose: 20 mg Insulin Aspart (Novolog Insulin Sliding Scale) 0 units SUBQ ACHS COLT PRN Reason: Protocol Stop: 09/22/16 16:29 Last Admin: 08/16/16 16:40 Dose: Not Given Lisinopril (Zestril) 20 mg PO DAILY [facility] Stop: 09/22/16 08:59 Last Admin: 08/16/16 08:32 Dose: 20 mg Magnesium Chloride (Slow-Mag) 1 ect PO BID COLT Stop: 09/22/16 16:59 Last Admin: 08/16/16 17:41 Dose: 1 ect Metformin HCl (Glucophage) 500 mg PO BID [facility] Stop: 09/21/16 16:59 Last Admin: 08/16/16 17:41 Dose: 500 mg Multivitamins/Vitamin C (Theragran) 1 tab PO DAILY [facility] Stop: 09/22/16 08:59 Last Admin: 08/16/16 08:32 Dose: 1 tab General: alert HEENT: NC/AT, PERRLA Neck: Supple Lungs: CTAB Cardiovascular: RRR, Normal S1, Normal S2, without murmur Abdomen: soft non-tender Internal Medicine Assmt/Plan - Assessment Assessment: copd dm htn hyperlipidemia electrolyte imbalance djd psychotic disorder - Plan Plan: low fat diet continue current plan of care cpm
[2016-08-17] MEDS: INSULIN ASPART SLIDING SCALE 100 UNITS/ML UNIT SUBQ SCH ×3 (06:34→20:24)
--- NOTE | 2016-08-17 07:27 | Progress Notes ---
SUBJECTIVE: Chart reviewed and the patient interviewed. Also, discussed the patient's condition with the staff and reviewed records and labs. The patient seems to be more depressed today and he is staying in his room and does not want to leave his room. He also is still showing lack of motivation and lack of energy. Also, during my interview, he is having poor eye contact with low tone and rate of speech and frustrated for ____ being in the hospital ____. At the same time, the patient is understanding that he is still in the hospital because no place accepted the patient ____ he does not want to be in the streets anymore. Otherwise, the patient is compliant with taking his medications with no side effects of medications. ASSESSMENT: The patient is still depressed. TREATMENT PLAN: We will continue monitoring his behavior and his condition closely. Also, continue adjusting psychotropic medications. Also, continue to work on discharge plans and a placement issue. JOB# [id number]
[2016-08-17] MEDS: Magnesium Chloride EC 64mg Tab PO SCH ×2 (08:32→16:21)
[2016-08-17] MEDS: Aspirin 81mg Chewable Tab PO SCH (08:32)
[2016-08-17] MEDS: Multivitamin Tab PO SCH (08:32)
--- NOTE | 2016-08-17 12:52 | Internal Medicine Prog Note ---
Internal Medicine Subjective - Subjective Service Date: 08/17/16 Patient seen and examined:: with staff Patient is:: awake Per staff patient is:: no adverse event Internal Medicine Objective - Results Result Diagrams: 07/24/16 07:04 Recent Labs: Laboratory Last Values Sodium 139 mEq/L (136-145) 07/24/16 07:04 Potassium 3.5 mEq/L (3.5-5.1) 07/24/16 07:04 Chloride 104 mEq/L (98-107) 07/24/16 07:04 Carbon Dioxide 29.3 mEq/L (21.0-31.0) 07/24/16 07:04 Anion Gap 9.2 (7.0-16.0) 07/24/16 07:04 BUN 14 mg/dL (7-25) 07/24/16 07:04 Creatinine 0.6 mg/dL (0.7-1.3) L 07/24/16 07:04 Est GFR ( Amer) > 60.0 ml/min 07/24/16 07:04 Est GFR (Non-Af Amer) > 60.0 ml/min 07/24/16 07:04 BUN/Creatinine Ratio 23.3 07/24/16 07:04 Glucose 97 mg/dL (70-105) 07/24/16 07:04 POC Glucose 69 MG/DL (70 - 105) L 08/17/16 11:33 Calcium 8.6 mg/dL (8.6-10.3) 07/24/16 07:04 Magnesium 1.6 mg/dL (1.9-2.7) L 07/24/16 06:58 - Physical Exam Vitals and I&O: Vital Signs Temp 98 F 08/17/16 06:11 Pulse 88 08/17/16 08:32 Resp 20 08/17/16 06:11 BP 158/94 08/17/16 08:32 Pulse Ox 95 08/17/16 06:11 Intake & Output 08/16/16 08/17/16 08/17/16 18:59 06:59 18:59 Intake Total 950 120 Output Total 4 Balance 946 120 Intake: Oral 950 120 Output: Urine 4 Other: # Voids 3 # Bowel Movements 1 0 Active Medications: Current Medications Acetaminophen (Tylenol) 650 mg PO Q4HR PRN PRN Reason: Pain or Fever >101 Stop: 02/20/17 16:12 Last Admin: 08/16/16 22:38 Dose: 650 mg Al Hydrox/Mg Hydrox/Simethicone (Maalox) 30 ml PO Q4HR PRN PRN Reason: GI DISTRESS Stop: 09/21/16 16:12 Aripiprazole (Abilify) 20 mg PO DAILY COLT PRN Reason: Protocol Stop: 10/06/16 12:12 Last Admin: 08/17/16 08:32 Dose: 20 mg Aspirin (Aspirin Chewable) 81 mg PO DAILY COLT Stop: 09/23/16 08:59 Last Admin: 08/17/16 08:32 Dose: 81 mg Escitalopram Oxalate (Lexapro) 20 mg PO DAILY COLT PRN Reason: Protocol Stop: 09/25/16 11:49 Last Admin: 08/17/16 08:32 Dose: 20 mg Insulin Aspart (Novolog Insulin Sliding Scale) 0 units SUBQ ACHS COLT PRN Reason: Protocol Stop: 09/22/16 16:29 Last Admin: 08/17/16 06:34 Dose: Not Given Lisinopril (Zestril) 20 mg PO DAILY [facility] Stop: 09/22/16 08:59 Last Admin: 08/17/16 08:32 Dose: 20 mg Magnesium Chloride (Slow-Mag) 1 ect PO BID [facility] Stop: 09/22/16 16:59 Last Admin: 08/17/16 08:32 Dose: 1 ect Metformin HCl (Glucophage) 500 mg PO BID [facility] Stop: 09/21/16 16:59 Last Admin: 08/17/16 08:32 Dose: 500 mg Multivitamins/Vitamin C (Theragran) 1 tab PO DAILY [facility] Stop: 09/22/16 08:59 Last Admin: 08/17/16 08:32 Dose: 1 tab General: alert HEENT: NC/AT, PERRLA Neck: Supple Lungs: CTAB Cardiovascular: RRR, Normal S1, Normal S2, without murmur Abdomen: soft non-tender Neurological: no change Internal Medicine Assmt/Plan - Assessment Assessment: copd dm htn hyperlipidemia electrolyte imbalance djd psychotic disorder - Plan Plan: low fat diet continue current plan of care cpm
--- NOTE | 2016-08-18 04:32 | Progress Notes ---
Covering for Dr. Isaacs. Case discussed with staff of the patient, reviewed records. This is a well known case to me as I have seen him many times covering for Dr. Isaacs. The patient according to the staff is awaiting placement. According to Dr. Isaacs now the patient still depressed, stays in his room and does not want to leave his room, still showing lack motivation and energy. He has poor eye contact, low tone and rate of speech, easily frustrated being in the hospital. He is understanding ____ because no place accepted the patient so far. He does not want to be in the streets anymore. He is compliant with the medication with no side effects, no sedation, no nausea, no extrapyramidal symptoms. He is on Lexapro 20 mg a day and Abilify that was increased by me last to 20 mg daily with no side effects, no sedation, no nausea. We will continue to work the patient in group therapy, milieu therapy, adjust medication as needed. JOB# [id number]
[2016-08-18] MEDS: INSULIN ASPART SLIDING SCALE 100 UNITS/ML UNIT SUBQ SCH ×3 (06:35→21:08)
[2016-08-18] MEDS: Magnesium Chloride EC 64mg Tab PO SCH ×2 (08:32→16:43)
[2016-08-18] MEDS: Aspirin 81mg Chewable Tab PO SCH (08:32)
[2016-08-18] MEDS: Multivitamin Tab PO SCH (08:32)
--- NOTE | 2016-08-18 19:12 | Internal Medicine Prog Note ---
Internal Medicine Subjective - Subjective Patient seen and examined:: with staff, chart reviewed Patient is:: awake, interactive Patient Complaints of:: congestion Per staff patient is:: no adverse event, confused Internal Medicine Objective - Results Result Diagrams: 07/24/16 07:04 Recent Labs: Laboratory Last Values Sodium 139 mEq/L (136-145) 07/24/16 07:04 Potassium 3.5 mEq/L (3.5-5.1) 07/24/16 07:04 Chloride 104 mEq/L (98-107) 07/24/16 07:04 Carbon Dioxide 29.3 mEq/L (21.0-31.0) 07/24/16 07:04 Anion Gap 9.2 (7.0-16.0) 07/24/16 07:04 BUN 14 mg/dL (7-25) 07/24/16 07:04 Creatinine 0.6 mg/dL (0.7-1.3) L 07/24/16 07:04 Est GFR ( Amer) > 60.0 ml/min 07/24/16 07:04 Est GFR (Non-Af Amer) > 60.0 ml/min 07/24/16 07:04 BUN/Creatinine Ratio 23.3 07/24/16 07:04 Glucose 97 mg/dL (70-105) 07/24/16 07:04 POC Glucose 85 MG/DL (70 - 105) 08/18/16 17:16 Calcium 8.6 mg/dL (8.6-10.3) 07/24/16 07:04 Magnesium 1.6 mg/dL (1.9-2.7) L 07/24/16 06:58 - Physical Exam Vitals and I&O: Vital Signs Temp 98.2 F 08/18/16 15:14 Pulse 77 08/18/16 15:14 Resp 20 08/18/16 15:14 BP 151/77 08/18/16 15:14 Pulse Ox 96 08/18/16 15:14 Intake & Output 08/18/16 08/18/16 08/19/16 06:59 18:59 06:59 Intake Total 900 Balance 900 Intake: Oral 900 Other: # Voids 2 4 # Bowel Movements 0 1 Active Medications: Current Medications Acetaminophen (Tylenol) 650 mg PO Q4HR PRN PRN Reason: Pain or Fever >101 Stop: 09/21/16 16:12 Last Admin: 08/18/16 10:32 Dose: 650 mg Al Hydrox/Mg Hydrox/Simethicone (Maalox) 30 ml PO Q4HR PRN PRN Reason: GI DISTRESS Stop: 09/21/16 16:12 Aripiprazole (Abilify) 20 mg PO DAILY COLT PRN Reason: Protocol Stop: 10/06/16 12:12 Last Admin: 08/18/16 08:32 Dose: 20 mg Aspirin (Aspirin Chewable) 81 mg PO DAILY [facility] Stop: 09/23/16 08:59 Last Admin: 08/18/16 08:32 Dose: 81 mg Clonidine HCl (Catapres) 0.1 mg PO Q8HR PRN PRN Reason: BP MAINTENANCE (PER PROTOCOL) Stop: 10/17/16 16:04 Escitalopram Oxalate (Lexapro) 20 mg PO DAILY COLT PRN Reason: Protocol Stop: 09/25/16 11:49 Last Admin: 08/18/16 08:32 Dose: 20 mg Insulin Aspart (Novolog Insulin Sliding Scale) 0 units SUBQ ACHS COLT PRN Reason: Protocol Stop: 09/22/16 16:29 Last Admin: 08/18/16 11:50 Dose: Not Given Lisinopril (Zestril) 20 mg PO DAILY [facility] Stop: 09/22/16 08:59 Last Admin: 08/18/16 08:32 Dose: 20 mg Magnesium Chloride (Slow-Mag) 1 ect PO BID [facility] Stop: 09/22/16 16:59 Last Admin: 08/18/16 16:43 Dose: 1 ect Metformin HCl (Glucophage) 500 mg PO BID [facility] Stop: 09/21/16 16:59 Last Admin: 08/18/16 16:43 Dose: 500 mg Multivitamins/Vitamin C (Theragran) 1 tab PO DAILY [facility] Stop: 09/22/16 08:59 Last Admin: 08/18/16 08:32 Dose: 1 tab General: weak, demented HEENT: NC/AT, PERRLA Neck: Supple, No JVD Lungs: CTAB Cardiovascular: RRR, Normal S1, Normal S2 Abdomen: soft non-tender, globular Extremities: clear Neurological: no change Internal Medicine Assmt/Plan - Assessment Assessment: copd dm htn hyperlipidemia electrolyte imbalance djd psychotic disorder - Plan Plan: cont on ada iss cont o bp meds cont on statin dw rn
--- NOTE | 2016-08-19 06:08 | Progress Notes ---
Case was discussed with staff of the patient, reviewed records. The patient is awaiting placement. He continues to be depressed, overwhelmed; however, he currently denies any current intent to harm himself or anybody. We are awaiting placement for this patient. He seems to be showing progress with the medication. He seems to have a little bit of better insight. No side effects with the medication, no sedation, no nausea, and no extrapyramidal symptoms. We will continue to work with the patient in group therapy, milieu therapy, and adjust the medications as needed. JOB# [id number]
[2016-08-19] MEDS: INSULIN ASPART SLIDING SCALE 100 UNITS/ML UNIT SUBQ SCH (06:53)
[2016-08-19] MEDS: Multivitamin Tab PO SCH (08:31)
[2016-08-19] MEDS: Aspirin 81mg Chewable Tab PO SCH (08:31)
[2016-08-19] MEDS: Magnesium Chloride EC 64mg Tab PO SCH (08:32)
--- NOTE | 2016-08-19 12:41 | Internal Medicine Prog Note ---
Internal Medicine Subjective - Subjective Patient seen and examined:: with staff, chart reviewed, other (about to be dc to b and c) Patient is:: awake Per staff patient is:: no adverse event Internal Medicine Objective - Results Result Diagrams: 07/24/16 07:04 Recent Labs: Laboratory Last Values Sodium 139 mEq/L (136-145) 07/24/16 07:04 Potassium 3.5 mEq/L (3.5-5.1) 07/24/16 07:04 Chloride 104 mEq/L (98-107) 07/24/16 07:04 Carbon Dioxide 29.3 mEq/L (21.0-31.0) 07/24/16 07:04 Anion Gap 9.2 (7.0-16.0) 07/24/16 07:04 BUN 14 mg/dL (7-25) 07/24/16 07:04 Creatinine 0.6 mg/dL (0.7-1.3) L 07/24/16 07:04 Est GFR ( Amer) > 60.0 ml/min 07/24/16 07:04 Est GFR (Non-Af Amer) > 60.0 ml/min 07/24/16 07:04 BUN/Creatinine Ratio 23.3 07/24/16 07:04 Glucose 97 mg/dL (70-105) 07/24/16 07:04 POC Glucose 74 MG/DL (70 - 105) 08/19/16 06:49 Calcium 8.6 mg/dL (8.6-10.3) 07/24/16 07:04 Magnesium 1.6 mg/dL (1.9-2.7) L 07/24/16 06:58 - Physical Exam Vitals and I&O: Vital Signs Temp 96.9 F 08/19/16 09:32 Pulse 98 08/19/16 09:32 Resp 18 08/19/16 09:32 BP 152/90 08/19/16 09:32 Pulse Ox 100 08/19/16 09:32 Intake & Output 08/18/16 08/19/16 08/19/16 18:59 06:59 18:59 Intake Total 900 480 Balance 900 480 Intake: Oral 900 480 Other: # Voids 4 2 # Bowel Movements 1 HEENT: NC/AT, PERRLA Neck: Supple, No JVD Lungs: CTAB Cardiovascular: RRR, Normal S1 Abdomen: soft non-tender, globular Extremities: clear Neurological: no change Internal Medicine Assmt/Plan - Assessment Assessment: copd dm htn hyperlipidemia electrolyte imbalance djd psychotic disorder - Plan Plan: cont on ada iss cont o bp meds cont on statin dw rn
--- NOTE | 2016-08-20 15:41 | Discharge Summary ---
AGE: 66. SEX: Male. PHYSICIAN: Dr. Isaacs. FINAL DIAGNOSIS/PRIMARY DIAGNOSIS: Major depression, severe, recurrent, with psychotic features. REASON FOR HOSPITALIZATION: The patient was admitted on a 5150 hold for agitation and confusion and inability to care for self. The patient also was homeless and was unable to provide any safe plan for self-care. HOSPITAL COURSE: The patient continued to be agitated and depressed. The patient was anxious. The patient also was feeling hopeless and helpless. The patient was given Lexapro. Placement was an issue and ____ no place accepting the patient. At the same time, the patient was not cooperative in regard to his placement. He ____ to be isolative and withdrawn. Gradually, the patient's affect was brighter. The patient was not as depressed. My communication as well as case making machine operatorresolution manager helped to ____ the patient accepted in [facility]. The patient agreed to go there. The patient was not suicidal or homicidal, and he was accepted to [facility]. PHYSICAL EXAMINATION: Basically showed no acute ____ for the patient. AFTER DISCHARGE PLANS: ____ and went to [facility] with plan to follow him up there and also discussed with the patient going through intensive outpatient program to continue his treatment. LABS: No abnormal labs. EXPECTED OUTCOME AFTER DISCHARGE: Fair if the patient continues with his outpatient treatment and continue to take his medications. JOB# [id number]
== END 2016-08-19 11:25 | disposition short-term general hospital (02) | DRG 885 ==
LOC: GERO 14:45
PROVIDERS: ADMIT Psychiatry & Neurology Psychiatry; ATTEND Psychiatry & Neurology Psychiatry
DX: F33.3 Major depressive disorder, recurrent, severe with psychotic symptoms (principal); E87.8 Other disorders of electrolyte and fluid balance, not elsewhere classified; J44.9 Chronic obstructive pulmonary disease, unspecified; E11.9 Type 2 diabetes mellitus without complications; I10 Essential (primary) hypertension; F29 Unspecified psychosis not due to a substance or known physiological condition; M19.90 Unspecified osteoarthritis, unspecified site; E78.5 Hyperlipidemia, unspecified; Z87.891 Personal history of nicotine dependence; Z83.3 Family history of diabetes mellitus; Z82.49 Family history of ischemic heart disease and other diseases of the circulatory system; Z59.0 Homelessness
CPT/HCPCS: 36415-UA; 71010-TC; 80048-TC; 82948-90; 83735-TC; 90899; 93005; G0410; J1815; Z7610